=== PATIENT | male | born 1995 | race African-American/Black ===

== ENCOUNTER 2022-03-27 14:55 | Emergency (ER) | payer OTHER ==
[2022-03-27] MEDS ORDERED: Divalproex Sodium Delayed-Release 500 MG Tab.CR PO ONE (15:09)
[2022-03-27 16:14] LABS: BLOOD UREA NITROGEN,BUN 9 mg/dL (7.0-18.0); CARBON DIOXIDE,CO2 24.3 mmol/L (21.0-32.0); CHLORIDE,CL 102 mmol/L (98-107); GLUCOSE RANDOM 101 mg/dL (74-106); POTASSIUM,K 3.6 mmol/L (3.5-5.1); SODIUM,NA 137 mmol/L (136-148)
[2022-03-27] MEDS ORDERED: Ibuprofen 600 MG Tab PO ONE (17:16)
== END 2022-03-27 18:54 | disposition home or self-care (01) ==
LOC: MW.ED 14:55
DX: R56.9 Unspecified convulsions (principal)
CPT/HCPCS: 36415; 70450; 71045; 72125; 80053; 80305; 80307; 84484; 85025; 93005; 99285; A9270; 93010

== ENCOUNTER 2022-03-31 00:36 | Emergency (ER) | payer OTHER ==
[2022-03-31] MEDS ORDERED: Ibuprofen 600 MG Tab PO ONE (01:02)
== END 2022-03-31 02:44 | disposition home or self-care (01) ==
LOC: MW.ED 00:36
DX: S69.91XA Unspecified injury of right wrist, hand and finger(s), initial encounter (principal); G40.909 Epilepsy, unspecified, not intractable, without status epilepticus
CPT/HCPCS: 73130-26-RT; 73130-RT; 99283; 99284-25; A9270-GY

== ENCOUNTER 2022-04-06 12:07 | Emergency (ER) | payer SELFPAY ==
[2022-04-06] MEDS ORDERED: Ketorolac 60 MG/2 ML SDV IM ONE (12:50)
== END 2022-04-06 14:06 | disposition home or self-care (01) ==
LOC: MW.ED 12:07
DX: M79.641 Pain in right hand (principal); F17.210 Nicotine dependence, cigarettes, uncomplicated
CPT/HCPCS: 73130; 96372; 99283; J1885; 99282

== ENCOUNTER 2022-04-11 17:19 | Emergency (ER) | payer SELFPAY | END 2022-04-11 19:10 | disposition left against medical advice (07) | LOC: MW.ED 17:19 | DX: M79.642 Pain in left hand (principal); Z53.21 Procedure and treatment not carried out due to patient leaving prior to being seen by health care provider ==

== ENCOUNTER 2022-08-19 02:09 | Emergency (ER) | payer SELFPAY ==
[2022-08-19] MEDS ORDERED: Ondansetron 4 MG/2 ML SDV IVPUSH ONE (02:13)
[2022-08-19 03:05] LABS: CARBON DIOXIDE,CO2 13.7 mmol/L (21.0-32.0)
[2022-08-19] MEDS ORDERED: LORazepam 2 MG/ML SDV IVPUSH ONE (03:15)
[2022-08-19] MEDS ORDERED: LORazepam 2 MG/ML SDV ONE (03:15)
[2022-08-19] MEDS ORDERED: LORazepam 2 MG/ML SDV IVPUSH STA (04:55)
== END 2022-08-19 06:03 | disposition home or self-care (01) ==
LOC: MW.ED 02:09
DX: S09.90XA Unspecified injury of head, initial encounter (principal); S01.511A Laceration without foreign body of lip, initial encounter; S83.91XA Sprain of unspecified site of right knee, initial encounter; R56.9 Unspecified convulsions; J45.909 Unspecified asthma, uncomplicated; Z79.899 Other long term (current) drug therapy; W22.8XXA Striking against or struck by other objects, initial encounter
CPT/HCPCS: 36415; 70450; 71045; 72125; 73560; 80053; 80307; 85025; 85610; 85730; 96365; 96375; 99284; J1953; J2060; J2405

== ENCOUNTER 2022-10-29 23:07 | Emergency (ER) | payer SELFPAY ==
[2022-10-29] MEDS ORDERED: Sodium Chloride 0.9% 1,000 ML IV ONE (23:11)
[2022-10-29] MEDS ORDERED: Sodium Chloride 0.9% 2.5 ML Syringe FLUSH PRN (23:11)
[2022-10-29] MEDS ORDERED: Sodium Chloride 0.9% 10 ML Syringe FLUSH PRN (23:11)
[2022-10-30 00:01] LABS: BLOOD UREA NITROGEN,BUN 14 mg/dL (7.0-18.0); CARBON DIOXIDE,CO2 21.9 mmol/L (21.0-32.0); CHLORIDE,CL 105 mmol/L (98-107); GLUCOSE RANDOM 70 mg/dL (74-106); POTASSIUM,K 3.6 mmol/L (3.5-5.1); SODIUM,NA 140 mmol/L (136-148)
[2022-10-30 00:08] LABS: ESTIMATED GFR 119 mL/min (>60)
[2022-10-30] MEDS ORDERED: Valproate Sodium 500 MG/5 ML SDV IV STA (00:51)
[2022-10-30] MEDS ORDERED: Valproate Sodium 500 MG in Sodium Chloride 0.9% 100 ML IV ONE (01:00)
== END 2022-10-30 02:55 | disposition home or self-care (01) ==
LOC: MW.ED 23:07
DX: R56.9 Unspecified convulsions (principal); F10.929 Alcohol use, unspecified with intoxication, unspecified; J45.909 Unspecified asthma, uncomplicated
CPT/HCPCS: 36415; 80053; 80164; 80307; 83735; 85025; 93005; 96361; 96365; 99285; J3490; J7030; 93010; 99283

== ENCOUNTER 2023-03-28 14:56 | Emergency (ER) | payer SELFPAY ==
[2023-03-28] MEDS ORDERED: Sodium Chloride 0.9% 2.5 ML Syringe FLUSH PRN (15:17)
[2023-03-28] MEDS ORDERED: Sodium Chloride 0.9% 10 ML Syringe FLUSH PRN (15:17)
[2023-03-28] MEDS ORDERED: Sodium Chloride 0.9% 1,000 ML IV STA (15:25)
[2023-03-28] MEDS ORDERED: Valproate Sodium 500 MG/5 ML SDV IV STA (15:43)
[2023-03-28 15:57] LABS: BASOPHILS PERCENT AUTO 0.3 % (0.0-1.5); EOSINOPHILS ABSOLUTE AUTO 0.1 K/uL (0.0-0.7); EOSINOPHILS PERCENT AUTO 1.5 % (0.0-7.0); HEMATOCRIT 38.4 % (38.0-50.0); LYMPHOCYTES ABSOLUTE AUTO 1.4 K/uL (0.6-2.4); LYMPHOCYTES PERCENT AUTO 22.9 % (16.0-40.0); MEAN CORPUSCULAR HEMOGLOBIN 29.8 pg (27.0-32.0); MEAN CORPUSCULAR HGB CONC 33.9 g/dL (31.0-37.0); MEAN CORPUSCULAR VOLUME 88.1 fL (80.0-98.0); MONOCYTES ABSOLUTE AUTO 0.4 K/uL (0.0-0.8); NEUTROPHILS ABSOLUTE AUTO 4.2 K/uL (1.4-5.7); NEUTROPHILS PERCENT AUTO 68.3 % (48.0-80.0); NRBC ABSOLUTE 0 K/uL; PLATELET COUNT,PLT 175 K/uL (150-400); RED BLOOD CELL COUNT 4.36 M/uL (4.50-5.90); WHITE BLOOD CELL COUNT,WBC 6.11 K/uL (4.0-11.0)
[2023-03-28] MEDS ORDERED: Valproate Sodium 1,500 MG in Sodium Chloride 0.9% 100 ML IV ONE (16:00)
[2023-03-28] MEDS ORDERED: levETIRAcetam 2,000 MG in Sodium Chloride 0.9% 100 ML IV ONE (16:15)
[2023-03-28 16:23] LABS: A/G RATIO 1.3 (0.9-1.6); ALBUMIN 3.9 g/dL (3.4-5.0); BILIRUBIN TOTAL 0.4 mg/dL (0.2-1.0); CALCIUM 8.6 mg/dL (8.5-10.1); CARBON DIOXIDE,CO2 26.2 mmol/L (21.0-32.0); EST CRCL DRUG DOSING (CG) 120.56 mL/min; POTASSIUM,K 3.3 mmol/L (3.5-5.1); PROTEIN TOTAL,TP 6.9 g/dL (6.4-8.2)
== END 2023-03-28 16:29 | disposition left against medical advice (07) ==
LOC: MW.ED 14:56
DX: G40.909 Epilepsy, unspecified, not intractable, without status epilepticus (principal); J45.909 Unspecified asthma, uncomplicated; Z91.148 Patient's other noncompliance with medication regimen for other reason
CPT/HCPCS: 36415; 80053; 80307; 85025; 96360; 99284; J3490; J7030; 99283